=== PATIENT | female | born 1970 | race Caucasian/White ===

== ENCOUNTER 2017-11-12 21:38 | Emergency (ER) | payer OTHER ==
[~2017-11-12] VITALS: Ht 162.6 cm; Wt 86.0 kg
[~2017-11-12 21:38] MED LIST: ALBU18HF INH; ALBU8.5H5 INFIL; CEPH-368 PO; CITA10TA4 PO; FLUT1DIS3 INH; FLUT1DIS5 IH; HYDR-3307 PO; LEVO50TA PO; LISI1TAB3 PO; LISINOPRIL PO; METH500T97 PO; NORCO PO; OXYC-302 PO; SYNTHROID PO
[2017-11-12] MEDS ORDERED: SODIUM CHLORIDE 0.9% 1,000ML IVBOLUS ONE (22:30)
[2017-11-12] MEDS ORDERED: MORPHINE SULFATE 4 MG/ML, 1ML IVPush PRN (22:30)
[2017-11-12] MEDS ORDERED: SODIUM CHLORIDE FLUSH 10ML SYR IVF ONE (22:30)
[2017-11-12] MEDS ORDERED: PROMETHAZINE 25 MG/ML, 1ML IM ONE (22:30)
[2017-11-12] MEDS ORDERED: PROMETHAZINE 25 MG/ML, 1ML ONE (22:36)
[2017-11-12] MEDS ORDERED: MORPHINE SULFATE 4 MG/ML, 1ML ONE (22:36)
[2017-11-12 22:53] LABS: MICROSCOPIC INDICATED
[2017-11-12 22:55] LABS: CULTURE INDICATED? NO
[2017-11-12 23:03] LABS: MEAN CORPUSCULAR HEMOGLOBIN 29.9 pg (27.0-34.8); MEAN CORPUSCULAR HGB CONC 33.6 g/dL (32.4-35.8); MEAN CORPUSCULAR VOLUME 88.8 fL (80-100); MEAN PLATELET VOLUME 8.5 fL (7.4-10.4); PLATELET COUNT 412 x10^3/uL (130-400); RED BLOOD COUNT 5.26 x10^6/uL (3.82-5.3); RED CELL DISTRIBUTION WIDTH 13.7 % (9.6-15.2)
[2017-11-12 23:08] LABS: ALANINE AMINOTRANSFERASE 13 U/L (12-78); ANION GAP 10 mmol/L (5-15); CALCIUM 8.7 mg/dL (8.5-10.1); CHLORIDE 104 mmol/L (98-107); CREATININE 0.75 mg/dL (0.55-1.02)
[2017-11-12 23:12] LABS: ALKALINE PHOSPHATASE 98 U/L (45-117); BILIRUBIN,TOTAL 0.6 mg/dL (0.2-1.0); TOTAL PROTEIN 7.1 g/dL (6.4-8.2)
[2017-11-12 23:24] LABS: BASOPHILS # (AUTO) 0.01 x10^3/uL (0-0.1); BASOPHILS % (AUTO) 0 % (0-1); EOSINOPHILS # (AUTO) 0.11 x10^3/uL (0-0.4); EOSINOPHILS % (AUTO) 1 % (1-7); LYMPHOCYTES # (AUTO) 1.32 x10^3/uL (1-3.4); LYMPHOCYTES % (AUTO) 7 % (22-44); MD SCAN; MONOCYTES # (AUTO) 0.46 x10^3/uL (0.2-0.8); MONOCYTES % (AUTO) 3 % (2-9); NEUTROPHILS # (AUTO) 16.56 x10^3/uL (1.8-6.8); NEUTROPHILS % (AUTO) 90 % (42-75)
[2017-11-12] MEDS ORDERED: OMNIPAQUE 350 MG/ML, 100ML BOTTLE ONE (23:49)
[2017-11-13 00:54] VITALS: BP 120/67
== END 2017-11-13 01:04 | disposition home or self-care (01) ==
LOC: ED 11-13 01:02
DX: R10.84 Generalized abdominal pain (principal); R11.2 Nausea with vomiting, unspecified; I10 Essential (primary) hypertension; J45.909 Unspecified asthma, uncomplicated
CPT/HCPCS: 36415; 74177; 80053; 81001; 83690; 84703; 85025; 96360; 96372; 99285; J2550; J7030; Q9967

== ENCOUNTER → 2017-12-11 | Outpatient (CLI) | payer OTHER | END | disposition home or self-care (01) | LOC: CFH 13:59 | PROVIDERS: ATTEND Obstetrics & Gynecology Female Pelvic Medicine and Reconstructive Surgery | DX: Z12.31 Encounter for screening mammogram for malignant neoplasm of breast (principal); D25.1 Intramural leiomyoma of uterus; N85.2 Hypertrophy of uterus | CPT/HCPCS: 76830; 77067 ==

== ENCOUNTER → 2018-02-10 | Outpatient (CLI) | payer OTHER ==
[2018-02-10 10:44] LABS: BASOPHILS # (AUTO) 0.12 x10^3/uL (0-0.1); BASOPHILS % (AUTO) 1 % (0-1); EOSINOPHILS # (AUTO) 0.52 x10^3/uL (0-0.4); EOSINOPHILS % (AUTO) 4 % (1-7); LYMPHOCYTES # (AUTO) 2.09 x10^3/uL (1-3.4); LYMPHOCYTES % (AUTO) 17 % (22-44); MD NO; MEAN CORPUSCULAR HEMOGLOBIN 29.7 pg (27.0-34.8); MEAN CORPUSCULAR HGB CONC 33.6 g/dL (32.4-35.8); MEAN CORPUSCULAR VOLUME 88.5 fL (80-100); MEAN PLATELET VOLUME 8.4 fL (7.4-10.4); MONOCYTES # (AUTO) 0.53 x10^3/uL (0.2-0.8); MONOCYTES % (AUTO) 4 % (2-9); NEUTROPHILS # (AUTO) 8.81 x10^3/uL (1.8-6.8); NEUTROPHILS % (AUTO) 73 % (42-75); PLATELET COUNT 383 x10^3/uL (130-400); RED BLOOD COUNT 5.25 x10^6/uL (3.82-5.3); RED CELL DISTRIBUTION WIDTH 13.6 % (9.6-15.2)
[2018-02-10 10:51] LABS: ALANINE AMINOTRANSFERASE 23 U/L (12-78); ALBUMIN 3.3 g/dL (3.4-5.0); ANION GAP 8 mmol/L (5-15); CALCIUM 8.9 mg/dL (8.5-10.1); CHLORIDE 103 mmol/L (98-107); CREATININE 0.74 mg/dL (0.55-1.02)
[2018-02-10 10:53] LABS: ALKALINE PHOSPHATASE 110 U/L (45-117); BILIRUBIN,TOTAL 0.3 mg/dL (0.2-1.0); TOTAL PROTEIN 7.6 g/dL (6.4-8.2)
== END | disposition home or self-care (01) ==
LOC: STAR 09:51
PROVIDERS: ATTEND Obstetrics & Gynecology Female Pelvic Medicine and Reconstructive Surgery
DX: Z01.818 Encounter for other preprocedural examination (principal); I10 Essential (primary) hypertension; N85.2 Hypertrophy of uterus; R87.619 Unspecified abnormal cytological findings in specimens from cervix uteri
CPT/HCPCS: 36415; 71046; 80053; 85025; 93005

== ENCOUNTER 2018-02-16 10:47 | Day surgery (SDC) | payer OTHER ==
[~2018-02-16] VITALS: Ht 162.6 cm; Wt 85.0 kg
[~2018-02-16 10:47] MED LIST changes: +BUPIVACAINE 0.25% ONE; +EPINEPHRINE 1 MG/ML, 1ML ONE; +INDIGO CARMINE 0.8%, 5ML ONE
[2018-02-16 11:23] VITALS: BP 134/83
[2018-02-16] MEDS ORDERED: OXYcodone IR 5MG TABLET PO ONE (11:30)
[2018-02-16] MEDS ORDERED: ACETAMINOPHEN 500 MG TABLET PO ONE (11:30)
[2018-02-16] MEDS ORDERED: SCOPOLAMINE PATCH, 1.5MG PATCH.TD72 TD ONE (11:30)
[2018-02-16] MEDS ORDERED: LACTATED RINGERS 1,000 ML IV SCH ×2 (11:49→14:30)
[2018-02-16] MEDS ORDERED: FENTANYL PF 250 MCG/5ML ONE (11:57)
[2018-02-16 11:59] LABS: HCG UR SG 1.015 (1.003-1.030)
[2018-02-16] MEDS ORDERED: LABETALOL 5MG/ML, 20ML IV PRN (12:00)
[2018-02-16] MEDS ORDERED: PROCHLORPERAZINE 5 MG/ML, 2ML IV PRN (12:00)
[2018-02-16] MEDS ORDERED: DIPHENHYDRAMINE 50 MG/ML, 1ML IVPush PRN (12:00)
[2018-02-16] MEDS ORDERED: PROMETHAZINE 25 MG/ML, 1ML IV PRN (12:00)
[2018-02-16] MEDS ORDERED: OXYcodone 5 MG/5 ML ORAL.SOL UDC PO PRN (12:00)
[2018-02-16] MEDS ORDERED: FENTANYL PF 100 MCG/2ML IV PRN (12:00)
[2018-02-16] MEDS ORDERED: hydrALAzine 20 MG/ML, 1ML IV PRN (12:00)
[2018-02-16] MEDS ORDERED: HYDROmorphone 1 MG/ML, 1ML IV PRN (12:00)
[2018-02-16] MEDS ORDERED: MEPERIDINE/PF 25MG/0.5ML IVPush PRN (12:00)
[2018-02-16] MEDS ORDERED: ALBUTEROL SULFATE 2.5 MG/3 ML NPPB PRN (13:30)
[2018-02-16] MEDS ORDERED: ROCURONIUM 10MG/ML,5ML ONE (14:00)
[2018-02-16] MEDS ORDERED: PROPOFOL 10 MG/ML, 20ML ONE (14:00)
[2018-02-16] MEDS ORDERED: ONDANSETRON 2MG/ML, 2ML ONE ×2 (14:00→14:35)
[2018-02-16] MEDS ORDERED: DEXAMETHASONE 4 MG/ML, 1ML ONE (14:00)
[2018-02-16] MEDS ORDERED: NEOSTIGMINE 1 MG/ML, 10ML ONE (14:00)
[2018-02-16] MEDS ORDERED: GLYCOPYRROLATE 0.2MG/1ML, 5ML ONE (14:00)
[2018-02-16] MEDS ORDERED: CEFAZOLIN 1,000 MG ONE (14:00)
[2018-02-16] MEDS ORDERED: SUCCINYLCHOLINE 20 MG/ML, 10ML ONE (14:00)
[2018-02-16] MEDS ORDERED: ONDANSETRON 2MG/ML, 2ML IVPush PRN (14:30)
[2018-02-16] MEDS ORDERED: PROMETHAZINE 25 MG SUPP PR ONE (14:30)
[2018-02-16] MEDS ORDERED: IBUPROFEN 600 MG TABLET PO PRN (14:30)
[2018-02-16] MEDS ORDERED: HYDROcodone/APAP 5/325 TABLET PO PRN (14:30)
[2018-02-16] MEDS ORDERED: PROCHLORPERAZINE 5 MG/ML, 2ML ONE (14:37)
[2018-02-16] MEDS ORDERED: HYDROmorphone 2 MG/ML, 1ML ONE (14:44)
== END 2018-02-16 17:20 | disposition home or self-care (01) ==
LOC: OUT 10:47
PROVIDERS: ATTEND Obstetrics & Gynecology Female Pelvic Medicine and Reconstructive Surgery
DX: N92.0 Excessive and frequent menstruation with regular cycle (principal); N73.6 Female pelvic peritoneal adhesions (postinfective); D25.9 Leiomyoma of uterus, unspecified; N83.8 Other noninflammatory disorders of ovary, fallopian tube and broad ligament; I10 Essential (primary) hypertension; J45.909 Unspecified asthma, uncomplicated; Z90.49 Acquired absence of other specified parts of digestive tract; Z98.51 Tubal ligation status; Z98.890 Other specified postprocedural states; Z79.899 Other long term (current) drug therapy; Z72.89 Other problems related to lifestyle
CPT/HCPCS: 58571; 81025; 88307; J0171; J0330; J0690; J0780; J1100; J1170; J2405; J2704; J2710; J3010; J3490; J7120

== ENCOUNTER 2019-05-18 21:06 | Emergency (ER) | payer OTHER ==
[~2019-05-18] VITALS: Ht 162.6 cm; Wt 80.0 kg
[~2019-05-18 21:06] MED LIST changes: -BUPIVACAINE 0.25% ONE; -EPINEPHRINE 1 MG/ML, 1ML ONE; -HYDR-3307 PO; +HYDR-36 PO; -INDIGO CARMINE 0.8%, 5ML ONE; +LISI1TAB23 PO; -LISI1TAB3 PO
--- NOTE | 2019-05-18 21:16 | NUR ---
ROJELIO RN: IN RESTROOM WHEN CALLED FOR TRIAGE
[2019-05-18] MEDS ORDERED: ONDANSETRON ODT 4 MG ONE (21:34)
--- NOTE | 2019-05-18 21:37 | NUR ---
CARDIOLOGY RN: PT MEDICATED PER ORDERS FOR VOMITING IN TRIAGE
--- NOTE | 2019-05-18 21:38 | NUR ---
PT. TO ROOM FROM LOBBY VIA W/C AT THIS TIME.
--- NOTE | 2019-05-18 21:50 | NUR ---
PT. TO ED WITH C/O ABD PAIN/CRAMPING AND N/V X 3 HOURS. PT. REPORTS HX OF SAME IN THE PAST SINCE 2015 AFTER GASTIC SLEEVE SURGERY. IV ESTABLISHED. EKG DONE.
[2019-05-18] MEDS ORDERED: MORPHINE SULFATE 4 MG/ML, 1ML ONE (21:52)
[2019-05-18] MEDS ORDERED: PROMETHAZINE 25 MG/ML, 1ML ONE (21:52)
[2019-05-18] MEDS ORDERED: ONDANSETRON 2MG/ML, 2ML ONE (21:52)
[2019-05-18 21:53] LABS: MEAN CORPUSCULAR HGB CONC 32.4 g/dL (32.4-35.8); MEAN CORPUSCULAR VOLUME 92.4 fL (80-100); MEAN PLATELET VOLUME 8.5 fL (7.4-10.4); PLATELET COUNT 391 x10^3/uL (130-400); RED CELL DISTRIBUTION WIDTH 13.2 % (9.6-15.2)
[2019-05-18] MEDS ORDERED: SODIUM CHLORIDE FLUSH 10ML SYR IVF ONE (22:00)
[2019-05-18] MEDS ORDERED: SODIUM CHLORIDE 0.9% 1,000ML IVBOLUS ONE (22:00)
[2019-05-18] MEDS ORDERED: ONDANSETRON ODT 4 MG PO ONE (22:00)
[2019-05-18] MEDS ORDERED: ONDANSETRON 2MG/ML, 2ML IVPush ONE (22:00)
[2019-05-18] MEDS ORDERED: MORPHINE SULFATE 4 MG/ML, 1ML IVPush PRN (22:00)
[2019-05-18] MEDS ORDERED: PROMETHAZINE 25 MG/ML, 1ML IM ONE (22:00)
[2019-05-18 22:07] LABS: ALBUMIN 3.2 g/dL (3.4-5.0); ANION GAP 11 mmol/L (5-15); CALCIUM 9.1 mg/dL (8.5-10.1); CHLORIDE 103 mmol/L (98-107)
[2019-05-18 22:10] LABS: ALANINE AMINOTRANSFERASE 19 U/L (12-78); ALKALINE PHOSPHATASE 114 U/L (45-117); BILIRUBIN,TOTAL 0.9 mg/dL (0.2-1.0); CREATININE 0.85 mg/dL (0.55-1.02); TOTAL PROTEIN 7.7 g/dL (6.4-8.2)
--- NOTE | 2019-05-18 22:10 | NUR ---
ALL MONITORS HAVE BEEN PLACED. PT. HAS BEEN MEDICATED PER MAR. AT BS FOR SUPPORT. CALL LIGHT IN REACH. POC DISUCSSED TO INCLUDE NEED FOR UA DEB. PT. VERBALIZED UNDERSTANDING OF THIS. PT. AWARE OF PLAN FOR CT. DENIES OTHER NEEDS AT THIS TIME. WARM BLANKET PROVIDED.
[2019-05-18 22:20] LABS: BASOPHILS # (AUTO) 0.05 x10^3/uL (0-0.1); BASOPHILS % (AUTO) 0 % (0-1); EOSINOPHILS # (AUTO) 0.76 x10^3/uL (0-0.4); EOSINOPHILS % (AUTO) 4 % (1-7); LYMPHOCYTES # (AUTO) 1.95 x10^3/uL (1-3.4); LYMPHOCYTES % (AUTO) 9 % (22-44); MD SCAN; MONOCYTES # (AUTO) 0.32 x10^3/uL (0.2-0.8); MONOCYTES % (AUTO) 2 % (2-9); NEUTROPHILS # (AUTO) 18.36 x10^3/uL (1.8-6.8); NEUTROPHILS % (AUTO) 86 % (42-75)
--- NOTE | 2019-05-18 22:47 | NUR ---
PT. IN CT NOW. PT. REPORTED FEELING BETTER PRIOR TO TRANSPORT TO CT. VOMITING/DRY-HEAVING CEASED.
[2019-05-18] MEDS ORDERED: OMNIPAQUE 350 MG/ML, 100ML BOTTLE ONE (22:55)
--- NOTE | 2019-05-18 23:13 | NUR ---
CLEAN CATCH UA INSTRUCTIONS PROVIDED TO PT., SHE VERBALIZED UNDERSTANING. PT. TO BR VIA W/C TO PROVIDE SAMPLE. PT. DENIES PAIN AT THIS TIME. PT. DROWSY. AWAITING CT READ.
--- NOTE | 2019-05-18 23:23 | NUR ---
URINE SAMPLE COLLECTED AND SENT TO LAB. PT. ASSISTED BACK TO GERI AND ALL MONITORS REPLACED. CALL LIGHT IN REACH.
[2019-05-18 23:27] LABS: MICROSCOPIC NOT IND
[2019-05-18 23:30] LABS: CULTURE INDICATED? NO
--- NOTE | 2019-05-18 23:55 | NUR ---
DR. CARBAJAL IN TO EVAL PT. AND DISCUSS PLAN FOR ADMISSION. PT. IS REFUSING ADMISSION AND REQUESTING TO D/C HOME. PT. VERBALIZED WILL RETURN FOR INCREASED SYMPTOMS OR FURTHER CONCERNS.
[2019-05-18 23:59] VITALS: BP 110/68
== END 2019-05-19 00:06 | disposition home or self-care (01) ==
LOC: ED 22:32
DX: K52.9 Noninfective gastroenteritis and colitis, unspecified (principal); R11.2 Nausea with vomiting, unspecified; E86.0 Dehydration; I10 Essential (primary) hypertension; J45.909 Unspecified asthma, uncomplicated; Z90.49 Acquired absence of other specified parts of digestive tract; Z72.89 Other problems related to lifestyle
CPT/HCPCS: 36415; 74177; 80053; 81003; 83690; 85025; 93005; 96361; 96372; 96374; 96375; 99284; J2270; J2405; J2550; J7030; Q0162; Q9967

== ENCOUNTER 2019-06-16 06:57 | Outpatient (CLI) | payer OTHER | END 2019-06-16 23:59 | disposition home or self-care (01) | LOC: RAD 06:57 | PROVIDERS: ATTEND Internal Medicine Gastroenterology | DX: K52.89 Other specified noninfective gastroenteritis and colitis (principal); K44.9 Diaphragmatic hernia without obstruction or gangrene; D72.829 Elevated white blood cell count, unspecified | CPT/HCPCS: 74240; 74245; 74248 ==

== ENCOUNTER 2019-09-05 06:53 | Emergency (ER) | payer OTHER ==
[~2019-09-05] VITALS: Ht 162.6 cm; Wt 83.3 kg
[~2019-09-05 06:53] MED LIST changes: +AZIT250T PO; +CEFD300C37 PO
[2019-09-05] MEDS ORDERED: ALBUTEROL/IPRATROPIUM 2.5MG/0.5MG, 3 ML ONE ×3 (07:24→09:31)
[2019-09-05] MEDS: ALBUTEROL/IPRATROPIUM 2.5MG/0.5MG, 3 ML NPPB SCH ×2 (07:31→08:10)
--- NOTE | 2019-09-05 07:31 | NUR ---
Breathing tx administered per order.
--- NOTE | 2019-09-05 07:38 | NUR ---
Pt states breathing slightly better after treatment.
--- NOTE | 2019-09-05 08:10 | NUR ---
Second breathing tx administered per order. Pt resting in bed, resps appear less labored, NADN.
[2019-09-05] MEDS ORDERED: ALBUTEROL/IPRATROPIUM 2.5MG/0.5MG, 3 ML NPPB ONE (09:30)
[2019-09-05 09:37] VITALS: BP 106/55
--- NOTE | 2019-09-05 09:37 | NUR ---
task rn: third breathing tx completed. performed 5 rights and 3 checks. pt tolerated with no complications.
--- NOTE | 2019-09-05 10:00 | NUR ---
TASK RN: Patient/Caregiver given discharge instructions and they have confirmed that they understand the instructions. Patient ambulatory with steady gait. PT LEFT WITH ALL PERSONAL BELONGINGS.
== END 2019-09-05 10:02 | disposition home or self-care (01) ==
LOC: ED 07:04
DX: J45.41 Moderate persistent asthma with (acute) exacerbation (principal); R94.31 Abnormal electrocardiogram [ECG] [EKG]
CPT/HCPCS: 71045; 93005; 99283; J7512

== ENCOUNTER 2019-09-25 08:02 | Emergency (ER) | payer OTHER ==
[~2019-09-25] VITALS: Ht 162.6 cm; Wt 89.7 kg
--- NOTE | 2019-09-25 08:28 | NUR ---
ERP WAS IN TO SEE PT. PT TACHY 110s-120s. STATES SHE USED ALBUTEROL INHALER AT HOME. SAME REPORTED IN TRIAGE NOTE. SPO2 WAS 87% ON RA, IMPROVED TO 95% ON 2L NC. POC RV'WD WITH PT, SHE VERBALIZES UNDERSTANDING.
[2019-09-25] MEDS ORDERED: methylPREDNISolone SOD SUCC 125 MG/2 ML IV ONE (08:30)
[2019-09-25] MEDS ORDERED: ALBUTEROL/IPRATROPIUM 2.5MG/0.5MG, 3 ML NPPB ONE (08:30)
[2019-09-25] MEDS ORDERED: SODIUM CHLORIDE FLUSH 10ML SYR IVF ONE (08:30)
[2019-09-25] MEDS ORDERED: methylPREDNISolone SOD SUCC 125 MG/2 ML ONE (08:32)
[2019-09-25] MEDS ORDERED: ALBUTEROL/IPRATROPIUM 2.5MG/0.5MG, 3 ML ONE (08:33)
[2019-09-25 09:15] LABS: BASOPHILS # (AUTO) 0.05 x10^3/uL (0-0.1); BASOPHILS % (AUTO) 1 % (0-1); EOSINOPHILS # (AUTO) 0.99 x10^3/uL (0-0.4); EOSINOPHILS % (AUTO) 13 % (1-7); LYMPHOCYTES # (AUTO) 1.32 x10^3/uL (1-3.4); LYMPHOCYTES % (AUTO) 17 % (22-44); MD NO; MEAN CORPUSCULAR HGB CONC 33.2 g/dL (32.4-35.8); MEAN CORPUSCULAR VOLUME 90.3 fL (80-100); MEAN PLATELET VOLUME 8.1 fL (7.4-10.4); MONOCYTES # (AUTO) 0.34 x10^3/uL (0.2-0.8); MONOCYTES % (AUTO) 4 % (2-9); NEUTROPHILS # (AUTO) 5.07 x10^3/uL (1.8-6.8); NEUTROPHILS % (AUTO) 65 % (42-75); PLATELET COUNT 267 x10^3/uL (130-400); RED BLOOD COUNT 5.37 x10^6/uL (3.82-5.3); RED CELL DISTRIBUTION WIDTH 14.9 % (9.6-15.2)
--- NOTE | 2019-09-25 09:22 | NUR ---
PT STATED HER BREATHING IS FEELING BETTER ALREADY. COMBIVENT INHALER GIVEN WITH SPACER. POC RV'WD WITH PT.
[2019-09-25 09:28] LABS: ALANINE AMINOTRANSFERASE 19 U/L (12-78); ALBUMIN 3.5 g/dL (3.4-5.0); ANION GAP 9 mmol/L (5-15); CALCIUM 9.2 mg/dL (8.5-10.1); CHLORIDE 106 mmol/L (98-107); CREATININE 0.74 mg/dL (0.55-1.02)
[2019-09-25 09:32] LABS: ALKALINE PHOSPHATASE 111 U/L (45-117); BILIRUBIN,TOTAL 0.4 mg/dL (0.2-1.0); TOTAL PROTEIN 7.8 g/dL (6.4-8.2)
[2019-09-25 09:39] VITALS: BP 174/81
--- NOTE | 2019-09-25 09:42 | NUR ---
ERP WAS IN FOR RECHECK. PT STATES SHE'S FEELING MUCH BETTER, REPORTS BREATHING IS EASIER. SPO2 91% ON RA.
--- NOTE | 2019-09-25 10:00 | NUR ---
D/C INSTRUCTIONS, MEDS & F/U APPT RV'WD WITH PT, SHE VERBALIZES UNDERSTANDING. RX GIVEN X1. COMBIVENT INHALER & SPACER PROVIDED TO PT PER ERP. PT AMBULATED OUT OF ED WITHOUT DIFFICULTY, STATES HER IS PICKING HER UP.
[2019-09-25] MEDS ORDERED: ALBUTEROL-IPRATROPIUM MDI INH INH SCH (11:00)
== END 2019-09-25 10:05 | disposition home or self-care (01) ==
LOC: ED 08:17
DX: J45.51 Severe persistent asthma with (acute) exacerbation (principal); J45.52 Severe persistent asthma with status asthmaticus; R00.0 Tachycardia, unspecified; I10 Essential (primary) hypertension; Z90.49 Acquired absence of other specified parts of digestive tract
CPT/HCPCS: 36415; 71045; 80053; 83880; 85025; 93005; 96374; 99285; J2930

== ENCOUNTER 2020-02-19 09:09 | Emergency (ER) | payer OTHER ==
[~2020-02-19] VITALS: Ht 162.6 cm; Wt 84.1 kg
[~2020-02-19 09:09] MED LIST changes: +HYDR-3246 PO; -HYDR-36 PO
[2020-02-19] MEDS ORDERED: ALBUTEROL/IPRATROPIUM 2.5MG/0.5MG, 3 ML ONE (09:40)
--- NOTE | 2020-02-19 09:45 | NUR ---
SOB X 3 DAYS; WORSE SINCE 230 THIS AM. HX OF ASTHMA.PT IN BED WITH CONT CARDIAC MONITOPR, SPO2, BP Q 30 MIN, SIDE RAILS UP X2, CALL LIGHT IN REACH. PT IN DROPLET PRECAUTIONS FOR COVID R/O. WENT OVER PLAN OF CARE FROM ORDER LIST, AGREES TO PLAN. LAB IN ROOM
[2020-02-19] MEDS ORDERED: ALBUTEROL/IPRATROPIUM 2.5MG/0.5MG, 3 ML NPPB SCH (10:00)
[2020-02-19 10:03] LABS: BASOPHILS % (AUTO) 0 % (0-1); EOSINOPHILS # (AUTO) 0.84 x10^3/uL (0-0.4); EOSINOPHILS % (AUTO) 8 % (1-7); LYMPHOCYTES # (AUTO) 1.07 x10^3/uL (1-3.4); LYMPHOCYTES % (AUTO) 11 % (22-44); MD NO; MEAN CORPUSCULAR HEMOGLOBIN 29.9 pg (27.0-34.8); MEAN CORPUSCULAR HGB CONC 32.8 g/dL (32.4-35.8); MEAN PLATELET VOLUME 8.3 fL (7.4-10.4); MONOCYTES # (AUTO) 0.07 x10^3/uL (0.2-0.8); MONOCYTES % (AUTO) 1 % (2-9); NEUTROPHILS # (AUTO) 8.08 x10^3/uL (1.8-6.8); NEUTROPHILS % (AUTO) 80 % (42-75); PLATELET COUNT 297 x10^3/uL (130-400); RED BLOOD COUNT 5.63 x10^6/uL (3.82-5.3); RED CELL DISTRIBUTION WIDTH 14.3 % (9.6-15.2)
[2020-02-19 10:12] LABS: ALANINE AMINOTRANSFERASE 19 U/L (12-78); ALBUMIN 3.5 g/dL (3.4-5.0); ANION GAP 9 mmol/L (5-15); CALCIUM 9.1 mg/dL (8.5-10.1); CHLORIDE 105 mmol/L (98-107); CREATININE 0.76 mg/dL (0.55-1.02)
[2020-02-19 10:17] LABS: ALKALINE PHOSPHATASE 116 U/L (45-117); BILIRUBIN,TOTAL 0.5 mg/dL (0.2-1.0); TOTAL PROTEIN 8.1 g/dL (6.4-8.2); TROPONIN I < 0.015 ng/mL (0.000-0.045)
[2020-02-19 10:20] LABS: RAPID INFLUENZA A Negative (Negative); RAPID INFLUENZA B Negative (Negative)
--- NOTE | 2020-02-19 10:20 | NUR ---
PT REPORTS THAT SHE FEELS LIKE SHE CAN BREATH BETTER AFTER DUONEB
--- NOTE | 2020-02-19 10:55 | NUR ---
REPORT RECEIVED FROM ALEX GANDHI. ASSUMING CARE AT THIS TIME.
[2020-02-19 11:02] VITALS: BP 145/96
--- NOTE | 2020-02-19 11:03 | NUR ---
PT OXYGEN LEVEL 95% RA WHILE AMBULATING.
== END 2020-02-19 11:45 | disposition home or self-care (01) ==
LOC: ED 11:39
DX: J45.31 Mild persistent asthma with (acute) exacerbation (principal); R07.89 Other chest pain; Z20.828 Contact with and (suspected) exposure to other viral communicable diseases; I10 Essential (primary) hypertension; J45.909 Unspecified asthma, uncomplicated; Z90.49 Acquired absence of other specified parts of digestive tract; R00.0 Tachycardia, unspecified; R06.02 Shortness of breath
CPT/HCPCS: 36415; 71045; 80053; 84484; 85025; 85379; 87400; 87635; 93005; 94640; 99285; J7512

== ENCOUNTER 2020-07-04 07:11 | Emergency (ER) | payer OTHER ==
[~2020-07-04] VITALS: Ht 162.6 cm; Wt 84.6 kg
[~2020-07-04 07:11] MED LIST changes: +FLUT1BLS INH; +FLUT1DIS IH; -HYDR-3246 PO; +HYDR-3248 PO; +IPRA0.2S35 INH; +METH4TAB6 PO; -OXYC-302 PO; +OXYC1TAB14 PO
[2020-07-04] MEDS ORDERED: ALBUTEROL/IPRATROPIUM 2.5MG/0.5MG, 3 ML NPPB ONE (07:30)
--- NOTE | 2020-07-04 07:32 | NUR ---
PT C/O SHORTNESS OF BREATH. PT STATED SHE WAS RECENTLY HOSPITALIZED FOR ASTHMA FOR 6 DAYS. SHE RECENTLY FINISHED HER STEROIDS ON FRIDAY AND HAS FELT HER BREATHING WORSENING SINCE THEN. PT STATES SHE IS "OK" FEELING RIGHT NOW, BUT THAT IT IS HARD FOR HER TO TAKE A DEEP BREATH. PT DENIES CP, FEVER, ABD DISTRESS/SYMPTOMS, OR HEADACHE. DAREN BARGER.
[2020-07-04] MEDS ORDERED: ALBUTEROL/IPRATROPIUM 2.5MG/0.5MG, 3 ML ONE (07:39)
[2020-07-04 08:30] VITALS: BP 153/88
--- NOTE | 2020-07-04 09:36 | NUR ---
PT REC'VD DISCHARGE INSTRUCTIONS AND EDUCATION. PT HAD NO FURTHER QUESTIONS. PT AMBULATED TO DC AREA, STEADY GAIT.
== END 2020-07-04 09:38 | disposition home or self-care (01) ==
LOC: ED 07:22
DX: J45.41 Moderate persistent asthma with (acute) exacerbation (principal); R06.02 Shortness of breath; R07.89 Other chest pain; R00.0 Tachycardia, unspecified; I10 Essential (primary) hypertension
CPT/HCPCS: 71045; 93005; 94640; 99283; J7512

== ENCOUNTER → 2020-11-29 | Outpatient (CLI) | payer OTHER | END | disposition home or self-care (01) | LOC: CFH 14:37 | PROVIDERS: ATTEND Internal Medicine | DX: J18.9 Pneumonia, unspecified organism (principal); R06.02 Shortness of breath | CPT/HCPCS: 71250 ==